=== PATIENT | female | born 1970 | race Two or more races ===

== ENCOUNTER 2021-11-17 09:02 | Outpatient (CLI) | payer OTHER | END 2021-11-17 09:18 | disposition home or self-care (01) | LOC: TOM 09:02 | PROVIDERS: ATTEND Urology | DX: R31.0 Gross hematuria (principal) ==

== ENCOUNTER 2023-08-03 05:16 | Day surgery (SDC) | payer OTHER ==
[2023-07-30 10:24] LABS: HEMATOCRIT 33.5 % (36.0-45.00); HEMOGLOBIN 11.1 g/dL (12.0-15.00); MEAN CELL VOLUME 88.3 fL (80.00-100.00); MEAN CORPUSCULAR HEMOGLOBIN 29.2 pg (27.00-32.0); MEAN CORPUSCULAR HGB CONC 33.1 g/dl (32.0-36.0); PLATELET COUNT 267 K/uL (150-450); RED BLOOD COUNT 3.79 M/uL (4.00-6.00); RED CELL DISTRIBUTION WIDTH 15.8 % (11.5-14.5)
[2023-07-30 10:34] LABS: INR 1.03; PARTIAL THROMBOPLASTIN TIME 28.5 SECONDS (22.0-34.0); PROTHROMBIN TIME 10.8 SECONDS (9.0-11.5)
[2023-07-30 10:44] LABS: CALCIUM 9.9 mg/dL (8.5-10.1); CREATININE SERUM 0.85 mg/dL (0.55-1.02); GFR 70.51; POTASSIUM 3.73 mEq/L (3.5-5.1)
[2023-07-30 11:00] LABS: PH,URINE 5.5 (5.0-8.0); URINE APPEARANCE Cloudy; URINE BILIRRUBIN Negative (NEGATIVE); URINE BLOOD Large; URINE COLOR Yellow; URINE GLUCOSE Negative (NEGATIVE); URINE LEUKOCYTE Large; URINE NITRATE Negative; URINE UROBILINOGEN 0.2 E.U./dl
[2023-07-30 11:06] LABS: URINE BACTERIA 638.8 uL (0.0-1933); URINE EPITHELIAL CELLS 7.1 uL (0.0-38.8); URINE RBC 1785.8 uL (0.0-20.8); URINE WBC 3016.9 uL (0.0-23.2)
[2023-07-30 12:20] LABS: URINE PROTEIN 300 (NEGATIVE); URINE YEAST FEW /hpf
[~2023-08-03 05:16] MED LIST: LEVOFLOXACIN750 MG PO
== END 2023-08-03 17:20 | disposition home or self-care (01) ==
LOC: CIR.AMB 05:16
PROVIDERS: ATTEND Urology
DX: N13.1 Hydronephrosis with ureteral stricture, not elsewhere classified (principal); N82.1 Other female urinary-genital tract fistulae; Z20.822 Contact with and (suspected) exposure to COVID-19